=== PATIENT | male | born 1975 | race Caucasian/White ===

== ENCOUNTER 2017-01-28 07:57 | Day surgery (SDC) | payer BC ==
--- NOTE | 2017-01-28 08:16 | PCM.PREANE ---
Preanesthetic Assessment - Anesthesia/Transfusion/Family Hx Anesthesia History: Prior Anesthesia Without Reaction Family History of Anesthesia Reaction: No Transfusion History: No Prior Transfusion(s) Intubation History: Unknown - Review of Systems General: No Symptoms Pulmonary: No Symptoms (Pulmonary nodule) Cardiovascular: No Symptoms Gastrointestinal: No Symptoms (GERD), Difficulty Swallowing (Patient has a history of this for 12 years, esophageal surgery 2010./History of achalasia.) Neurological: No Symptoms Other: Reports: Sinus Problem (Rhinitis) - Physical Assessment NPO Status Date: 01/27/17 NPO Status Time: 21:00 Pulse: 74 O2 Sat by Pulse Oximetry: 94 Respiratory Rate: 16 Blood Pressure: 126/75 Temperature: 36.6 C Height: 1.73 m Weight: 88.904 kg ASA Class: 2 Mental Status: Alert & Oriented x3 Airway Class: Mallampati = 2 Dentition: Reports: Normal Dentition, Caries Thyro-Mental Finger Breadths: 3 Mouth Opening Finger Breadths: 3 ROM/Head Extension: Full Lungs: Clear to Auscultation, Normal Respiratory Effort Cardiovascular: Regular Rate, Regular Rhythm, No Murmurs - Anesthesia Plan Pre-Op Medication Ordered: None - Acknowledgements Anesthesia Type Planned: MAC Pt an Appropriate Candidate for the Planned Anesthesia: Yes Alternatives and Risks of Anesthesia Discussed w Pt/Guardian: Yes Pt/Guardian Understands and Agrees with Anesthesia Plan: Yes
[2017-01-28] MEDS ORDERED: Sodium Chloride 0.9% 10 ML Syringe FLUSH PRN (08:35)
[2017-01-28] MEDS ORDERED: Lidocaine 1%/Sod Bicarbonate in NS 8.4% 1 ML Syringe IV PRN (08:35)
[2017-01-28] MEDS ORDERED: Lactated Ringers 1,000 ML IV SCH (08:45)
--- NOTE | 2017-01-28 09:46 | PCM48HPAN ---
Post Anesthesia Note - EVALUATION WITHIN 48HRS OF ANESTHETIC Vital Signs in Normal Range: Yes Patient Participated in Evaluation: Yes Respiratory Function Stable: Yes Airway Patent: Yes Cardiovascular Function Stable: Yes Hydration Status Stable: Yes Pain Control Satisfactory: Yes Nausea and Vomiting Control Satisfactory: Yes Mental Status Recovered: Yes
[2017-01-28 09:48] VITALS: BP 112/93
--- NOTE | 2017-01-30 09:24 | PCM.OPNOTE ---
- General Post-Op/Procedure Note Date of Surgery/Procedure: 01/28/17 Operative Procedure(s): Colonoscopy Findings: Slightly thickened sigmoid colon with a few scattered uncomplicated diverticuli. No mass lesions or chronic inflammatory changes seen Pre Op Diagnosis: History of diverticulitis with thickened sigmoid on CT scan Post-Op Diagnosis: Sigmoid diverticulosis with circular hypertrophy of the sigmoid musculature Anesthesia Technique: MAC, Moderate Sedation Primary Surgeon: Nuno Robb Pathology: None EBL in mLs: 0 Complications: None Condition: Good Free Text/Narrative:: After adequate IV sedation and analgesia was obtained with monitoring the patient was placed on his left side. Perianal inspection and digital rectal examination were performed next and were unremarkable. A lubricated colonoscope was inserted into the rectum then advanced under direct vision to the cecum without difficulty. The bowel preparation was adequate. The cecum ascending colon transverse and descending colons were endoscopically normal with no mass lesions or inflammatory changes seen. The sigmoid had a few scattered uncomplicated small diverticuli. The circular musculature was slightly hypertrophied, especially in the central aspect of the sigmoid. There were no mass lesions or chronic inflammatory changes seen within this area. The rectum likewise was unremarkable in both views. Principal Statistical Scientist photographs were taken for the patient and for the medical record. Air was removed as I finished the procedure which he tolerated well.
== END 2017-01-28 10:43 | disposition home or self-care (01) ==
LOC: JD.SDS 07:57
PROVIDERS: ATTEND Surgery
DX: K57.30 Diverticulosis of large intestine without perforation or abscess without bleeding (principal); K63.89 Other specified diseases of intestine; K21.9 Gastro-esophageal reflux disease without esophagitis; R91.1 Solitary pulmonary nodule; Z91.018 Allergy to other foods; Z79.899 Other long term (current) drug therapy
CPT/HCPCS: 45378; J7120; 00810

== ENCOUNTER 2020-06-26 07:58 | Day surgery (SDC) | payer BC ==
[~2020-06-26 07:58] MED LIST: Lactated Ringers 1,000 ML IV SCH; Lidocaine 1%/Sod Bicarbonate in NS 8.4% 1 ML Syringe IDERM PRN; Sodium Chloride 0.9% 10 ML Syringe FLUSH PRN
--- NOTE | 2020-06-26 08:46 | PCM.PREANE ---
Preanesthetic Assessment - Procedure Proposed Procedure: Diagnositic EGD - Anesthesia/Transfusion/Family Hx Anesthesia History: Prior Anesthesia Without Reaction Family History of Anesthesia Reaction: No Transfusion History: No Prior Transfusion(s) Intubation History: Unknown - Review of Systems General: No Symptoms Pulmonary: No Symptoms, Other (History of pulmonary aspiration before surgery for his achalasia. Baseline oxygen saturations 92-94% today. Denies SOB and cough today. ) Cardiovascular: No Symptoms (>4 MET capacity) Gastrointestinal: Other (GERD, controlled with his medications. Status post surgical correction for achalasia/Hiatal Hernia. ) Neurological: No Symptoms Other: Reports: None - Physical Assessment NPO Status Date: 06/25/20 NPO Status Time: 22:00 Vital Signs: Last Vital Signs Temp 36.6 C 06/26/20 08:07 Pulse 78 06/26/20 08:07 Resp 17 06/26/20 08:07 BP 138/87 06/26/20 08:07 Pulse Ox 93 L 06/26/20 08:07 Height: 1.73 m Weight: 95.7 kg ASA Class: 2 Mental Status: Alert & Oriented x3 Airway Class: Mallampati = 2 Dentition: Reports: Caries Thyro-Mental Finger Breadths: 3 Mouth Opening Finger Breadths: 3 ROM/Head Extension: Full Lungs: Clear to Auscultation, Normal Respiratory Effort, Decreased Breath Sounds (lower bases bilateral, improved with cough and deep breathing. ) Cardiovascular: Regular Rate, Regular Rhythm - Allergies Allergies/Adverse Reactions: Allergies Allergy/AdvReac Type Severity Reaction Status Date / Time hayfever Allergy Airway Uncoded 06/26/20 08:43 Tightness - Blood Blood Available: No - Acknowledgements Anesthesia Type Planned: General Anesthesia (If needed.), MAC Pt an Appropriate Candidate for the Planned Anesthesia: Yes Alternatives and Risks of Anesthesia Discussed w Pt/Guardian: Yes Pt/Guardian Understands and Agrees with Anesthesia Plan: Yes Additional Comments: History of aspiration with EGD prior to his surgical correction in 2011. Gama states he has had many EGD scopes done since that time with sedation and has done well in the past. He understands the risk of aspiration and has no further questions at this time. Hand off report given to LARY Razo. PreAnesthesia Questionnaire HEENT History: Reports: Allergic Rhinitis Cardiovascular History: Reports: None Respiratory History: Reports: Other (See Below) Other Respiratory History: pulmonary nodule Gastrointestinal History: Reports: GERD Other Gastrointestinal History: divertiurlitis, abdominal cramping, diverticulosis, diverticulitis, hiatal hernia, umbilical hernia, esophageal achalasia Genitourinary History: Reports: Other (See Below) Other Genitourinary History: hematuria Musculoskeletal History: Reports: Other (See Below) Other Musculoskeletal History: muscle pain, heller myomotomy Neurological History: Reports: None Psychiatric History: Reports: None Endocrine/Metabolic History: Reports: None Hematologic History: Reports: None Immunologic History: Reports: None Oncologic (Cancer) History: Reports: None Dermatologic History: Reports: None - Infectious Disease History Infectious Disease History: Reports: None - Past Surgical History Head Surgeries/Procedures: Reports: None HEENT Surgical History: Reports: Oral Surgery Cardiovascular Surgical History: Reports: None Respiratory Surgical History: Reports: None GI Surgical History: Reports: Esophageal Dilatation Female Surgical History: Reports: None Other Female Surgeries/Procedures: hematuria Male Surgical History: Reports: None Endocrine Surgical History: Reports: None Neurological Surgical History: Reports: None Musculoskeletal Surgical History: Reports: None Oncologic Surgical History: Reports: None Dermatological Surgical History: Reports: None - SUBSTANCE USE Tobacco Use Status *Q: Never Tobacco User Days Per Week of Alcohol Use: 1 Number of Drinks Per Day: 2 Total Drinks Per Week: 2 - HOME MEDS Home Medications: Home Meds Omeprazole Magnesium [Prilosec Otc] 40 mg PO BID 01/28/17 [History] Psyllium Husk [Fiber] 0.52 gm PO DAILY 06/25/20 [History] - CURRENT (IN HOUSE) MEDS Current Meds: Current Medications Lactated Ringer's (Ringers, Lactated) 1,000 mls @ 125 mls/hr IV ASDIRECTED ROXIE Stop: 06/26/20 23:00 Lidocaine/Sodium Bicarbonate (Buffered Lidocaine 1% In Ns 8.4%) 0.25 ml IDERM ONETIME PRN PRN Reason: Prior to IV Start Stop: 06/26/20 18:00 Sodium Chloride (Saline Flush) 10 ml FLUSH ASDIRECTED PRN PRN Reason: Keep Vein Open Stop: 06/26/20 18:00
[2020-06-26] MEDS ORDERED: Propofol 200 MG/20 ML SDV ONE (09:23)
[2020-06-26] MEDS ORDERED: Lidocaine 1% 6 ML ONE (09:23)
[2020-06-26] MEDS ORDERED: fentaNYL 100 MCG/2 ML SDV ONE (09:24)
[2020-06-26] MEDS ORDERED: Midazolam 1 MG/ML 2 ML SDV ONE (09:27)
--- NOTE | 2020-06-26 09:52 | PCM.PRNOTE ---
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 No significant abnormalities noted otherwise; there was no apparent fundoplication or hiatal hernia. Detailed Report: The patient was taken to the endoscopy suite and placed supine with the head of the bed raised. Time out was performed and monitored anesthesia care was initiated. A bite-block was placed. The endoscope was inserted in the mouth and advanced to the antrum of the stomach. The pylorus appeared normal. On retroflexion, no findings of gastritis or ulceration were noted. There was no evidence of hiatal hernia. The scope was withdrawn into the distal esophagus. The esophagus was markedly dilated and there was fluid pooled in the esophagus. This was suctioned. No obvious gross metaplastic change or esophagitis was noted. Several biopsies of the distal esophagus were obtained with cold forceps. Air was suctioned from the stomach and the esophagus on withdrawal of the scope. The patient tolerated the procedure well.
--- NOTE | 2020-06-26 10:09 | PCM48HPAN ---
Post Anesthesia Note - EVALUATION WITHIN 48HRS OF ANESTHETIC Vital Signs in Normal Range: Yes Patient Participated in Evaluation: Yes Respiratory Function Stable: Yes Airway Patent: Yes Cardiovascular Function Stable: Yes Hydration Status Stable: Yes Pain Control Satisfactory: Yes Nausea and Vomiting Control Satisfactory: Yes Mental Status Recovered: Yes Vital Signs: Last Vital Signs Temp 98.1 F 06/26/20 09:51 Pulse 79 06/26/20 10:00 Resp 17 06/26/20 10:00 BP 116/69 06/26/20 10:00 Pulse Ox 94 L 06/26/20 10:00
[2020-06-26 14:09] VITALS: BP 117/62; PULSE 75
== END 2020-06-26 10:35 | disposition home or self-care (01) ==
LOC: JD.SDS 07:58
PROVIDERS: ATTEND Surgery
DX: K21.00 Gastro-esophageal reflux disease with esophagitis, without bleeding (principal); K22.8 Other specified diseases of esophagus; Z91.09 Other allergy status, other than to drugs and biological substances; Z87.19 Personal history of other diseases of the digestive system; Z79.899 Other long term (current) drug therapy; Z98.890 Other specified postprocedural states
CPT/HCPCS: 43239; J2250; J2704; J3010; J7120; 00731

== ENCOUNTER → 2022-10-16 | Day surgery (SDC) | payer BC ==
[~2022-10-16] MED LIST changes: +Famotidine 20 MG/2 ML SDV IVPUSH SCH; +Glycopyrrolate 0.2 MG/ML SDV IVPUSH SCH; +Lactated Ringers 1,000 ML ONE; -Lidocaine 1%/Sod Bicarbonate in NS 8.4% 1 ML Syringe IDERM PRN; +Metoclopramide 10 MG/2 ML SDV ONE; +Midazolam 1 MG/ML 2 ML SDV ONE; +Ondansetron 4 MG/2 ML SDV IVPUSH PRN; +Ondansetron 4 MG/2 ML SDV ONE; +Propofol 200 MG/20 ML SDV ONE; +Sodium Chloride 0.9% 10 ML Syringe FLUSH SCH; +fentaNYL 100 MCG/2 ML SDV ONE
[2022-10-16 12:08] VITALS: BP 106/75; PULSE 87
== END | disposition home or self-care (01) ==
LOC: JD.SDS 07:22
PROVIDERS: ATTEND Surgery
DX: K21.00 Gastro-esophageal reflux disease with esophagitis, without bleeding (principal); K29.50 Unspecified chronic gastritis without bleeding; K57.30 Diverticulosis of large intestine without perforation or abscess without bleeding; K62.89 Other specified diseases of anus and rectum; I10 Essential (primary) hypertension; Z79.899 Other long term (current) drug therapy; Z98.890 Other specified postprocedural states; Z87.09 Personal history of other diseases of the respiratory system
CPT/HCPCS: 43239; 45380; J2250; J2405; J2704; J2765; J3010; J3490; J7120; 00813